=== PATIENT | male | born 2005 | race Caucasian/White ===

== ENCOUNTER 2024-08-05 13:47 | Inpatient (IN) | payer BC, MEDICAID ==
[~2024-08-05] VITALS: Ht 175.3 cm; Wt 78.6 kg
--- NOTE | 2024-08-05 14:34 | ED.PDOC ---
HPI Comments 19-year-old male with no reported PMHx brought in by EMS presents with a chief complaint of chest pain and palpitations x 1 hour. Patient states that his pain is localized to his left chest wall, describes as pressure, and rates his pain a 6/10. Patient mentions that he has an upcoming appointment at [facility] with a mechanical lead. Patient mentions that he is being worked up on suspicion of potential SVT. Patients EKG shows NSR with rate of 95. No other symptoms or modifying factors present at this time. Chief Complaint: Palpitations Time Seen by MD: 14:27 Primary Care Provider: UNKNOWN Reviewed Notes: Medications, Allergies Allergies: Coded Allergies: NO KNOWN ALLERGIES (Unverified , 08/05/24) Information Source: Patient Mode of Arrival: Ambulatory Severity: Moderate Timing: Hours Duration: Since onset Prehospital treatment: None Location: Chest (L) Radiation: No Radiation Quality: Pressure Onset: At Rest Cardiac Risk Factors: None PE Risk Factors: None History of: Similar pain in past Associated Signs and Symptoms: Palpitations Past Medical History PAST MEDICAL HISTORY: Denies Surgical History: Denies all surgeries Family History Family History: Reviewed,noncontributory to illness Social History Smoker: Quit Less Than 1 Year Alcohol: Denies ETOH Use, Sober Lives In: Home Constitutional: denies: chills, diaphoresis, fatigue, fever, malaise, sweats, weakness, others EENTM: denies: blurred vision, double vision, ear bleeding, ear discharge, ear drainage, ear pain, ear ringing, eye pain, eye redness, hearing loss, mouth pain, mouth swelling, nasal discharge, nose bleeding, nose congestion, nose pain, photophobia, tearing, throat pain, throat swelling, voice changes, others Respiratory: denies: cough, hemoptysis, orthopnea, SOB at rest, shortness of breath, SOB with excertion, stridor, wheezing, others Cardiovascular: reports: chest pain, palpitations; denies: dizzy spells, diaphoresis, Dyspnea on exertion, edema, irregular heart beat, left arm pain, lightheadedness, PND, syncope, others Gastrointestinal: denies: abdomen distended, abdominal pain, blood streaked bowels, constipated, diarrhea, dysphagia, difficulty swallowing, hematemesis, melena, nausea, poor appetite, poor fluid intake, rectal bleeding, rectal pain, vomiting, others Genitourinary: denies: burning, dysuria, flank pain, frequency, hematuria, incontinence, penile discharge, penile sore, pain, testicle pain, testicle swelling, urgency, others Neurological: denies: dizziness, fainting, headache, left sided numbness, left sided weakness, numbness, paresthesia, pre-existing deficit, right sided numbn ess, right sided weakness, seizure, speech problems, tingling, tremors, weakness, others Musculoskeletal: denies: back pain, gout, joint pain, joint swelling, muscle pain, muscle stiffness, neck pain, others Integumetry: denies: bruises, change in color, change in hair/nails, dryness, laceration, lesions, lumps, rash, wounds, others Allergic/Immunocompromised: denies: Difficulty Healing, Frequent Infections, Hives, Itching, others Hematologic/Lymphatic: denies: anemia, blood clots, easy bleeding, easy bruising, swollen glands, others Endocrine: denies: excessive hunger, excessive sweating, excessive thirst, excessive urination, flushing, intolerance to cold, intolerance to heat, unexplained weight gain, unexplained weight loss, others Psychiatric: denies: anxiety, bipolar disorder, depression, hopeless, panic disorder, schizophrenia, sleepless, suicidal, others All Other Systems: Reviewed and Negative Physical Exam General Appearance: Moderate Distress, Normal HEENT: Normal ENT Inspection, Pharynx Normal, TMs Normal Neck: Full Range of Motion, Non-Tender, Normal, Normal Inspection Respiratory: Chest Non-Tender, Lungs Clear, No Accessory Muscle Use, No Respiratory Distress, Normal Breath Sounds Cardiovascular: No Edema, No JVD, No Murmur, No Gallop, Normal Peripheral Pulses, Tachycardia Breast Exam: Deferred Gastrointestinal: No Organomegaly, Non Tender, No Pulsatile Mass, Normal Bowel Sounds, Soft Genitalia: Deferred Pelvic: Deferred Rectal: Deferred Extremities: No calf tenderness, Normal capillary refill, Normal inspection, Normal range of motion, Non-tender, No pedal edema Musculoskeletal : Apperance: Normal Neurologic: Alert, medical resident II-XII nml as Tested, No Motor Deficits, Normal Affect, Normal Mood, No Sensory Deficits Cerebellar Function: Normal Reflexes: Normal Skin: Dry, Normal Color, Warm Peripheral Pulses: 3+ Radial (R), 3+ Radial (L) Lymphatic: No Adenopathy EKG EKG : Pulse Rate (adult): 95 Kiron: RAD Cardiac Rhythm: NSR Block: None Hypertrophy: None ST: Normal Was a procedure done? Was a procedure done?: No CP Differential Dx Differential Diagnosis: A-fib, A-Flutter, Angina, Anxiety / Panic Attack, Atrial Dysrhythmia, Electrolyte Disorder X-Ray, Labs, Meds, VS Vital Signs Date Time Temp Pulse Resp B/P (MAP) Pulse Ox O2 Delivery O2 Flow Rate FiO2 08/05/24 14:34 95 08/05/24 14:05 97.7 85 16 138/84 (102) 98 08/05/24 13:53 95 Lab Test 08/05/24 14:47 Range/Units White Blood Count Pending Red Blood Count Pending Hemoglobin Pending Hematocrit Pending Mean Corpuscular Volume Pending Mean Corpuscular Hemoglobin Pending Mean Corpuscular Hemoglobin Concent Pending Red Cell Distribution Width Pending Platelet Count Pending Mean Platelet Volume Pending Neutrophils (%) (Auto) Pending Lymphocytes (%) (Auto) Pending Monocytes (%) (Auto) Pending Basophils (%) (Auto) Pending Neutrophils # (Auto) Pending Lymphocytes # (Auto) Pending Monocytes # (Auto) Pending Sodium Level Pending Potassium Level Pending Chloride Level Pending Carbon Dioxide Level Pending Anion Gap Pending Blood Urea Nitrogen Pending Creatinine Pending Glomerular Filtration Rate Calc Pending BUN/Creatinine Ratio Pending Serum Glucose Pending Calcium Level Pending Troponin I High Sensitivity Pending Patient alert. Complaining of palpitations. Increased heart rate. Vitals stable. EKG does show tachycardia. Continues to have palpitations. States that he has a history of SVT. Was given aspirin. Possibly will need echocardiogram. Cardiology consultation. Check for thyroid function test. Explained to the patient. Continue cardiac monitoring. Time of 1ST Reevaluation: 14:57 Reevaluation 1ST: Unchanged Patient Education/Counseling: Diagnosis, Treatment, Prognosis Family Education/Counseling: Diagnosis, Treatment, Prognosis Departure 1 Departure Time of Disposition: 15:36 Impression: Primary Impression: Palpitations Disposition: ADMITTED INPATIENT Admit to: Med Surg Condition: Guarded Critical Care Note Critical Care Time?: No Stability Stability form required: No Heart Score Heart Score: Heart Score Response (Comments) Value History Slightly Suspicious 0 EKG Normal 0 Age <45 0 Risk Factors No known risk factors 0 Troponin Normal limit 0 Total 0 I personally scribed for SILVIA RHODES MD ([email or web address]) on 08/05/24 at 14:34. Electronically submitted by Noe Lo ([email or web address]). SILVIA RHODES MD Aug 05, 2024 14:34
--- NOTE | 2024-08-05 14:45 | DVH ---
CHEST RADIOGRAPH Indication: sob Technique: Single frontal view of the chest was obtained COMPARISON: None FINDINGS: Lines and Tubes: None Lungs: Clear Pleura: No effusion. No pneumothorax. Cardiomediastinal contours: Unremarkable Bones: Unremarkable IMPRESSION: No acute disease.
[2024-08-05] MEDS: ASPirin 325 MG TAB PO ONE (14:46)
[2024-08-05 15:30] LABS: Basophils # (auto) 0.1 10 ^3/uL (0-0.2); Eosinophils # (auto) 0.1 10 ^3/uL (0-0.8); Eosinophils % (auto) 1.6 % (0.0-7.0); Hematocrit 45.9 % (41.0-53.0); Lymphocytes # (auto) 1.7 10 ^3/uL (0.4-5.4); Lymphocytes % (auto) 24.1 % (10.0-50.0); Mean Corpuscular Hemoglobin 30.4 pg (28.0-32.0); Mean Corpuscular Hgb Conc. 34.9 g/dL (32.0-36.0); Monocytes # (auto) 0.5 10 ^3/uL (0-1.3); Monocytes % (auto) 6.5 % (0.0-12.0); Neutrophils # (auto) 4.7 10 ^3/uL (1.6-8.6); Neutrophils % (auto) 66.8 % (37.0-80.0); Nucleated Red Blood Cells % 0.1 %; Platelet Count (auto) 232 10^3/uL (140-450); Red Blood Cells 5.28 10^6/uL (4.5-5.90)
[2024-08-05 15:43] LABS: Chloride 105 mmol/L (98-107); Sodium 140 mmol/L (136-145)
[2024-08-05 15:44] LABS: Anion Gap 9 (5-15); Calcium 9.7 mg/dL (8.7-10.4); Carbon Dioxide 26 mmol/L (20-31)
[2024-08-05 15:49] LABS: BUN/Creatinine Ratio 13.1 (10.0-20.0); Blood Urea Nitrogen 13 mg/dL (9-23); Glucose 85 mg/dL (74-106)
--- NOTE | 2024-08-05 17:10 | ECG ---
[facility] Test Date: 2024-08-05 Test Time: 13:53:15 Pat Name: JULIÁN TOBAR Department: ER Room: Gender: M Supervisor Public Health Nursing: MADELEINE : 2005 Requested By: PILLO LOCKHART Order Number: [id number] Reading MD: Measurements Intervals [employer] Rate: 95 P: 64 NH: 151 QRS: 96 QRSD: 92 T: 44 QT: 331 QTc: 416 Interpretive Statements Sinus rhythm Borderline right axis deviation Please click the below link to view image of tracing.
[2024-08-05] MEDS ORDERED: MORPHINE SULFATE 4 MG/ML SYR/VIAL IV PRN (17:15)
[2024-08-05] MEDS ORDERED: ONDANSETRON HCL 4 MG/2 ML VIAL IV PRN (17:15)
[2024-08-05] MEDS ORDERED: MORPHINE SULFATE INJ 2 MG/ml SYRG IV PRN (17:15)
[2024-08-05] MEDS ORDERED: NITROGLYCERIN 0.4 MG SL TAB SL PRN ×2 (17:15)
[2024-08-05] MEDS ORDERED: ACETAMINOPHEN 325 MG TAB PO PRN (17:15)
--- NOTE | 2024-08-05 17:29 | DVHHP2 ---
History of Present Illness Reason for Visit: Chest pain and palpitations History of Present Illness Tim Hester is a 19-year-old male with past medical history of IBS who presents to the ED for chest pain and palpitations x3 months. Patient reports that the pain was 8/10 felt like someone was sitting on his chest and inter mittent. Patient reports that he was vaping last month but quit and converted to cigarettes and now completely quit. 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 Patient denies any recent trauma or injury, recent illnesses, recent sick contacts, ingestion of spoiled food, abdominal pain, nausea, vomiting, diarrhea, fever, chills, lightheadedness, weakness, and dizziness. Mom is at the chair side and states that they have been going to numerous facilities and seeing numerous specialists that include Cardiology and their primary with no resolution. Patient's mom also states that there is an upcoming appointment next week on the with a licensed mass real estate appraiser at [place]. She also stated that the doctor at [facility] in ED informed her that on the EKG he had SVT and if it happens again to go directly to ER. Past Medical History IBS Past Surgical History: None Family History: Other (Grandfather with heart disease, dad with valve dysfunction and grandma with atherosclerosis?) Smoke: <1 pack per day ALCOHOL: none Drugs: None Lives: with Family Domestic Violence: Neg Review of Systems Constitutional: No: Fever, Chills, Sweats, Weakness, Malaise, Other Eyes: No: Pain, Vision change, Conjunctivae inflammation, Eyelid inflammation, Other, Redness ENT: No: Ear pain, Ear discharge, Nose pain, Nose discharge, Nose congestion, Mouth pain, Mouth swelling, Throat pain, Throat swelling, Other Respiratory: No: Cough, Dry, Shortness of breath, SOB with excertion, Wheezing, Hemoptysis, Pleuritic Pain, Sputum, Wheezing, Other Cardiovascular: Chest Pain, Palpitations; No: Orthopnea, Paroxysmal Noc. Dyspnea, Edema, Lt Headedness, Other Gastrointestinal: No: Nausea, Vomiting, Abdominal Pain, Diarrhea, Constipation, Melena, Hematochezia, Other Genitourinary: No Dysuria, No Frequency, No Incontinence, No Hematuria, No Retention, No Other Musculoskeletal: No: other, neck pain, shoulder pain, arm pain, back pain, hand pain, leg pain, foot pain Skin: No: Rash, Lesions, Jaundice, Bruising, Other Neurological: No: Weakness, Numbness, Incoordination, Change in speech, Confusion, Seizures, Other Allergies: Coded Allergies: NO KNOWN ALLERGIES (Unverified , 08/05/24) Exam Vital Signs Vital Signs Date Time Temp Pulse Resp B/P (MAP) Pulse Ox O2 Delivery O2 Flow Rate FiO2 08/05/24 14:34 95 08/05/24 14:05 97.7 16 138/84 (102) 98 General Appearance: Alert, Oriented X3, Cooperative, No acute distress HEENT: Atraumatic, PERRLA, EOMI, Mucous membr. moist/pink Respiratory: Normal air movement Cardiovascular: Regular rate, Normal S1, Normal S2, No murmurs Abdominal: Normal bowel sounds, Soft, No tenderness, No hepatospenomegaly, No masses Extremities: No clubbing, No cyanosis, No edema, Normal pulses, No tenderness/swelling Skin: No rashes, No breakdown, No significant lesion Neuro: Normal gait, Normal speech, Strength at 5/5 X4 ext, Normal tone, Sensation intact Psych/Mental Status: Mental status NL, Mood NL Labs/Xrays Labs Test 08/05/24 14:47 Range/Units White Blood Count 7.0 4.4-10.8 10^3/uL Red Blood Count 5.28 4.5-5.90 10^6/uL Hemoglobin 16.0 13.5-17.5 g/dL Hematocrit 45.9 41.0-53.0 % Mean Corpuscular Volume 87.0 80.0-100.0 fL Mean Corpuscular Hemoglobin 30.4 28.0-32.0 pg Mean Corpuscular Hemoglobin Concent 34.9 32.0-36.0 g/dL Red Cell Distribution Width 13.0 11.8-14.3 % Platelet Count 232 140-450 10^3/uL Mean Platelet Volume 9.6 6.9-10.8 fL Neutrophils (%) (Auto) 66.8 37.0-80.0 % Lymphocytes (%) (Auto) 24.1 10.0-50.0 % Monocytes (%) (Auto) 6.5 0.0-12.0 % Eosinophils (%) (Auto) 1.6 0.0-7.0 % Basophils (%) (Auto) 1.0 0.0-2.0 % Neutrophils # (Auto) 4.7 1.6-8.6 10 ^3/uL Lymphocytes # (Auto) 1.7 0.4-5.4 10 ^3/uL Monocytes # (Auto) 0.5 0-1.3 10 ^3/uL Eosinophils # (Auto) 0.1 0-0.8 10 ^3/uL Basophils # (Auto) 0.1 0-0.2 10 ^3/uL Nucleated Red Blood Cells 0.1 % Sodium Level 140 136-145 mmol/L Potassium Level 4.0 3.5-5.1 mmol/L Chloride Level 105 98-107 mmol/L Carbon Dioxide Level 26 20-31 mmol/L Anion Gap 9 5-15 Blood Urea Nitrogen 13 9-23 mg/dL Creatinine 0.99 0.700-1.30 mg/dL Glomerular Filtration Rate Calc 112 >90 mL/min BUN/Creatinine Ratio 13.1 10.0-20.0 Serum Glucose 85 74-106 mg/dL Calcium Level 9.7 8.7-10.4 mg/dL Troponin I High Sensitivity < 3 L </=54 ng/L CHEST RADIOGRAPH Indication: sob Technique: Single frontal view of the chest was obtained COMPARISON: None FINDINGS: Lines and Tubes: None Lungs: Clear Pleura: No effusion. No pneumothorax. Cardiomediastinal contours: Unremarkable Bones: Unremarkable IMPRESSION: No acute disease. Assessment/Plan Assessment/Plan Assessment/Plan: Palpitations Chest pain rule out ACS Labs TSH UDS Troponin negative Chest x-ray noted Echo ordered A1c Lipid panel UA EKG ordered CT chest ACS protocol Cardiac consult A.m. labs History of IBS Follow up outpatient with PCP Tobacco use Counseled patient on cessation of tobacco use/vape use FEN/PPX Diet Hep-Lock DVT ppx - not indicated patient ambulating PUD prophylaxis -famotidine Discussed plan of care with patient and nurse Home medications reconciled Admit to tele Plan discussed with: Patient, Other (mom) My Orders Orders - PILLO LOCKHART PHOTOGRAPHIC RESTORER Procedure Category Date Status Time Echo 2d Mode Cardiac US 08/05/24 Logged DOP 16:42 Hemoglobin A1c LAB 08/05/24 In Process 16:42 Urinalysis LAB 08/05/24 Logged 16:42 Drug Screen LAB 08/05/24 Logged 16:42 Lipid Panel LAB 08/05/24 Logged 16:[address] 08/05/24 Logged 16:44 * Cardiology Consult CONS 08/05/24 Transmitted 17:06 Admit ADMIT 08/05/24 Transmitted 17:06 Code Status CODE 08/05/24 Transmitted 17:06 Vital Signs LUDA 08/05/24 Transmitted 17:06 Neonatal Pediatric Nurse LUDA 08/05/24 Transmitted 17:06 Cardiac DIET 08/05/24 Transmitted Diet-2gna,Lofat,Lochol Dinner Aspirin Tablet PHA 08/06/24 Transmitted 10:00 Lipitor 40mg Hs PHA 08/05/24 Transmitted Hi-Intensity 22:00 Morphine Sulfate PHA 08/05/24 Transmitted Injection 17:15 Acetaminophen Tablet PHA 08/05/24 Transmitted (Tylenol Tablet) 17:15 Complete Blood Count LAB 08/06/24 Verified 04:00 Basic Metabolic Panel LAB 08/06/24 Verified 04:00 Magnesium LAB 08/06/24 Verified 04:00 Nitroglycerin PHA 08/05/24 Transmitted Sublingual (Ntrostat 17:15 Ondansetron Hcl PHA 08/05/24 Transmitted (Zofran) 17:15 Electrocardigram EKG 08/05/24 Transmitted 17:06 Troponin-I Hs LAB 08/05/24 Transmitted 17:06 Cardiac LUDA 08/05/24 Transmitted Rehabilitation - Outpa Nitroglycerin PHA 08/05/24 Transmitted Sublingual (Ntrostat 17:15 Morphine Sulfate PHA 08/05/24 Transmitted Injection 17:15 Stat Ekg For Chest [facility] 08/05/24 Transmitted Pain 17:06 Notify Md Of Changes [facility] 08/05/24 Transmitted From Base 17:06 Rrts For LUDA 08/05/24 Transmitted 24 Hours 17:06 Emergency Dysrhythmia LUDA 08/05/24 Transmitted Protocol 17:06 Rhythm Strips Once [facility] 08/05/24 Transmitted Every Shift 17:06 Oxygen By Nasal RT 08/05/24 Transmitted Cannula 17:06 Electrocardigram EKG 08/05/24 Transmitted 18:06 Electrocardigram EKG 08/05/24 Transmitted 20:06 Date of Service: Aug 05, 2024 Billing Provider: PILLO LOCKHART Common Visit Codes: [id number] INP/OBS CARE (HIGH) PILLO LOCKHART Aug 05, 2024 17:29
--- NOTE | 2024-08-05 17:32 | DVH ---
Procedure: CT CHEST WITHOUT CONTRAST Reason for study/Clinical History: cp Comparison Study: None available at time of dictation. Exam Date: 08/05/2024 05:07 PM TECHNIQUE: Multidetector CT of the chest was performed from the lung apices to the upper abdomen with out the use of intravenous contract. Axial, coronal and sagittal multiplanar reformats were performed . Radiation Dose Information: CT Dose: CTDI volume is 5.95 mGy. Dose-length product is 244.09 mGy*cm The dose indicators for CT are the volume Computed Tomography (CT) Dose Index (CTDIvol) and the Dose Length Product (DLP), and are measured in units of mGy and mGy-cm, respectively. These indicators are not patient dose, but values generated from the CT scanner acquisition factors. The report includes radiation exposure data for exposures received during this examination. FINDINGS: Lower neck: Normal thyroid. Lungs: No focal consolidation, pleural effusion or pneumothorax. Heart/Vascular Structures: Normal heart size. No pericardial effusion. Lymph Nodes: No adenopathy Pleura: No pleural effusion or significant pneumothorax. Musculoskeletal: No acute osseous abnormality. Soft tissues: Normal. Upper abdomen: Limited portions of the upper abdomen are unremarkable. IMPRESSION: 1. No acute intrathoracic abnormality. Radiation optimization: All CT scans at this facility use at least one of these dose optimization veronica hniques: automated exposure control mA and/or kV adjustment per patient size (includes targeted exam s where dose is matched to clinical indication) or iterative reconstruction.
[2024-08-05 18:45] LABS: LDL Cholesterol 67 mg/dL (< 100); Triglycerides 46 mg/dL (< 150)
[2024-08-05 18:47] LABS: Cholesterol 116 mg/dL (< 200); HDL Cholesterol 41 mg/dL (40-59)
[2024-08-05 21:17] LABS: Urine Bacteria FEW /hpf (None Seen); Urine Blood Negative /uL (Negative); Urine Clarity Clear (Clear); Urine Color Yellow (Yellow); Urine Mucus FEW (None Seen); Urine Protein, UAD TRACE (Negative); Urine Specific Gravity 1.027 (1.001-1.035); Urine Squamous Epithelial Cell None Seen /hpf (<5); Urine Urobilinogen Normal (Negative); Urine WBC 3 /HPF (0-3)
[2024-08-05 21:48] LABS: Amphetamine Screen, Urine Neg (NEGATIVE); Barbiturate Scree,Urine Neg (NEGATIVE); Benzodiazephine Screen, Urine Neg (NEGATIVE); Opiate Scree,Urine Neg (NEGATIVE); Phencyclidine Screen, Urine Neg (NEGATIVE)
[2024-08-05 21:49] LABS: Cannabinoid Screen, Urine Neg (NEGATIVE); Cocaine Screen, Urine Neg (NEGATIVE)
[2024-08-06] MEDS: ATORVASTATIN 20 MG TAB PO SCH (00:05)
[2024-08-06 01:15] VITALS: RESP 15; O2SAT 97
[2024-08-06 06:14] LABS: Basophils # (auto) 0.1 10 ^3/uL (0-0.2); Eosinophils # (auto) 0.2 10 ^3/uL (0-0.8); Eosinophils % (auto) 2.9 % (0.0-7.0); Hematocrit 46.8 % (41.0-53.0); Hemoglobin 15.7 g/dL (13.5-17.5); Lymphocytes # (auto) 1.7 10 ^3/uL (0.4-5.4); Lymphocytes % (auto) 27.4 % (10.0-50.0); Mean Corpuscular Hemoglobin 29.4 pg (28.0-32.0); Mean Corpuscular Hgb Conc. 33.6 g/dL (32.0-36.0); Mean Corpuscular Volume 87.6 fL (80.0-100.0); Monocytes # (auto) 0.5 10 ^3/uL (0-1.3); Monocytes % (auto) 7.4 % (0.0-12.0); Neutrophils # (auto) 3.8 10 ^3/uL (1.6-8.6); Neutrophils % (auto) 61.3 % (37.0-80.0); Nucleated Red Blood Cells % 0.2 %; Platelet Count (auto) 234 10^3/uL (140-450); Red Blood Cells 5.34 10^6/uL (4.5-5.90); White Blood Cell 6.2 10^3/uL (4.4-10.8)
[2024-08-06 06:23] LABS: Anion Gap 8 (5-15); Carbon Dioxide 26 mmol/L (20-31); Chloride 106 mmol/L (98-107); Potassium 4.5 mmol/L (3.5-5.1); Sodium 140 mmol/L (136-145)
[2024-08-06 06:25] LABS: Calcium 10.1 mg/dL (8.7-10.4)
[2024-08-06 06:29] LABS: Glucose 94 mg/dL (74-106)
[2024-08-06 06:30] LABS: BUN/Creatinine Ratio 9.7 (10.0-20.0); Blood Urea Nitrogen 10 mg/dL (9-23); Magnesium 2.1 mg/dL (1.6-2.6)
[2024-08-06] MEDS: FAMOTIDINE (10MG/ML) 2ML VL IV SCH (10:00)
[2024-08-06] MEDS: ASPirin 81 mg TAB PO SCH (10:58)
--- NOTE | 2024-08-06 11:14 | DVHINCON2 ---
ROMEROLIAMO Love AGACNP 08/06/24 1114: Date Seen: Aug 06, 2024 Referring Physician Marlena Reason for Consultation Palpitations, Chest Pain History of Present Illness 19-year-old male with no prior medical history presents to the hospital with chest pressure and palpitations. Patient states that he has been having recent episodes for over a year and has been following up at [place]. Denies any anxiety. Patient is following up with PCP outpatient recently got a referral for cardiology consult done at [place] though has not had appointment yet. Denies any high caffeinated beverages pre workout or any supplements. Denies any alcohol, tobacco, or illicit drug use. Patient states that his blood pressure is significantly elevated at time of occurrence, noted his heart rate to be in the 130s up to 150s with blood pressure being around 150 systolic as well. Upon evaluation in the ER troponins negative, TSH normal, and CT chest unremarkable. EKG reviewed and shows sinus rhythm at 95 beats per minute, no acute ST and T-wave abnormality. Past Medical History Palpitations Recurrent CP Past Surgical History Denies previous cardiac surgeries Family History Denies pertinent family cardiac history Social History Denies alcohol, tobacco or illicit drug use Allergies: Coded Allergies: NO KNOWN ALLERGIES (Unverified , 08/05/24) Current Medications Current Medications Medications (Trade) Dose Ordered Sig/Delisa Route PRN Reason Start Time Stop Time Status Last Admin Aspirin 81 mg DAILY PO 08/06/24 10:00 Atorvastatin Calcium (Lipitor) 40 mg HS PO 08/05/24 22:00 Morphine Sulfate 2 mg Q30MP PRN IV FOR CHEST PAIN 08/05/24 17:15 08/05/24 17:11 DC Acetaminophen (Tylenol Tablet) 650 mg Q6HP PRN PO MILD PAIN (1-3 PAIN SCALE) 08/05/24 17:15 Nitroglycerin (Ntrostat Sublingual) 0.4 mg Q5MINP PRN SL FOR CHEST PAIN 08/05/24 17:15 08/05/24 17:12 DC Ondansetron HCl (Zofran) 4 mg Q4HP PRN IV NAUSEA / VOMITING 08/05/24 17:15 Nitroglycerin (Ntrostat Sublingual) 0.4 mg Q5MINP PRN SL FOR CHEST PAIN 08/05/24 17:15 Morphine Sulfate 2 mg Q30M PRN IV FOR CHEST PAIN 08/05/24 17:15 Famotidine (Pepcid Injection) 20 mg DAILY IV 08/06/24 10:00 Review of Systems Constitutional: No: Fever, Chills, Sweats, Weakness, Malaise, Other Eyes: No: Pain, Vision change, Conjunctivae inflammation, Eyelid inflammation, Other, Redness ENT: No: Ear pain, Ear discharge, Nose pain, Nose discharge, Nose congestion, Mouth pain, Mouth swelling, Throat pain, Throat swelling, Other Respiratory: No: Cough, Dry, Shortness of breath, SOB with exertion, Wheezing, Hemoptysis, Pleuritic Pain, Sputum, Wheezing, Other Cardiovascular: ; No: , Orthopnea, Paroxysmal Noc. Dyspnea, Edema, Lt Headedness, Other positive: Chest Pain Palpitations Gastrointestinal: No: Nausea, Vomiting, Abdominal Pain, Diarrhea, Constipation, Melena, Hematochezia, Other Genitourinary: No Dysuria, No Frequency, No Incontinence, No Hematuria, No Retention, No Other Musculoskeletal: neck pain; No: other, shoulder pain, arm pain, back pain, hand pain, leg pain, foot pain Skin: No: Rash, Lesions, Jaundice, Bruising, Other Neurological: Other (Dizziness, headache.); No: Weakness, Numbness, Incoordination, Change in speech, Confusion, Seizures Vital Signs Vital Signs Date Time Temp Pulse Resp B/P (MAP) Pulse Ox O2 Delivery O2 Flow Rate FiO2 08/06/24 09:30 97.8 83 20 122/64 (83) 97 97.8 08/06/24 01:15 Room Air* 0 21 Physical Exam General appearance: Patient is well-developed, well-nourished, in no acute distress. HEENT: Exam shows: Normocephalic, atraumatic, PERRLA, EOMI Neck: Supple, no bruits Chest: Equal chest excursion bilaterally. Breath sounds normal-no rales or wh eezes. Heart: Rhythm: Regular rate; tachycardia no murmur or gallop Abdomen: Exam shows: Soft, nontender, nondistended Musculoskeletal: No clubbing, no cyanosis, no lower extremity edema Dermatology: Skin warm, moist. Neurological: Exam shows: Alert and oriented x4, normal speech Available prior records, labs, EKG, rhythm strips reviewed and interpreted Labs/Diagnostic Data Labs Test 08/06/24 08:16 08/06/24 05:09 08/05/24 20:46 08/05/24 18:10 Range/Units White Blood Count 6.2 4.4-10.8 10^3/uL Red Blood Count 5.34 4.5-5.90 10^6/uL Hemoglobin 15.7 13.5-17.5 g/dL Hematocrit 46.8 41.0-53.0 % Mean Corpuscular Volume 87.6 80.0-100.0 fL Mean Corpuscular Hemoglobin 29.4 28.0-32.0 pg Mean Corpuscular Hemoglobin Concent 33.6 32.0-36.0 g/dL Red Cell Distribution Width 13.0 11.8-14.3 % Platelet Count 234 140-450 10^3/uL Mean Platelet Volume 9.5 6.9-10.8 fL Neutrophils (%) (Auto) 61.3 37.0-80.0 % Lymphocytes (%) (Auto) 27.4 10.0-50.0 % Monocytes (%) (Auto) 7.4 0.0-12.0 % Eosinophils (%) (Auto) 2.9 0.0-7.0 % Basophils (%) (Auto) 1.0 0.0-2.0 % Neutrophils # (Auto) 3.8 1.6-8.6 10 ^3/uL Lymphocytes # (Auto) 1.7 0.4-5.4 10 ^3/uL Monocytes # (Auto) 0.5 0-1.3 10 ^3/uL Eosinophils # (Auto) 0.2 0-0.8 10 ^3/uL Basophils # (Auto) 0.1 0-0.2 10 ^3/uL Nucleated Red Blood Cells 0.2 % Sodium Level 140 136-145 mmol/L Potassium Level 4.5 3.5-5.1 mmol/L Chloride Level 106 98-107 mmol/L Carbon Dioxide Level 26 20-31 mmol/L Anion Gap 8 5-15 Blood Urea Nitrogen 10 9-23 mg/dL Creatinine 1.03 0.700-1.30 mg/dL Glomerular Filtration Rate Calc 107 >90 mL/min BUN/Creatinine Ratio 9.7 L 10.0-20.0 Serum Glucose 94 74-106 mg/dL Calcium Level 10.1 8.7-10.4 mg/dL Magnesium Level 2.1 1.6-2.6 mg/dL Urine Color Yellow Yellow Urine Clarity Clear Clear Urine pH 6.0 5.0-9.0 Urine Specific [place] 1.027 1.001-1.035 Urine Protein Trace H Negative Urine Ketones 1+ H Negative Urine Blood Negative Negative /uL Urine Nitrite Negative Negative Urine Bilirubin Negative Negative Urine Urobilinogen Normal Negative mg/dL Urine Leukocyte Esterase Negative Negative /uL Urine RBC 2 0 - 3 /hpf Urine Microscopic WBC 3 0-3 /HPF Urine Squamous Epithelial Cells None seen <5 /hpf Urine Bacteria Few H None Seen /hpf Urine Mucus Few None Seen Urine Glucose Normal Normal mg/dL Urine Opiates Screen Neg NEGATIVE Urine Fentanyl Screen Neg NEGATIVE Urine Barbiturates Screen Neg NEGATIVE Urine Phencyclidine Screen Neg NEGATIVE Urine Amphetamines Screen Neg NEGATIVE Urine Benzodiazepines Screen Neg NEGATIVE Urine Cocaine Screen Neg NEGATIVE Urine Cannabinoids Screen Neg NEGATIVE Triglycerides Level 46 < 150 mg/dL Cholesterol Level 116 < 200 mg/dL LDL Cholesterol 67 < 100 mg/dL HDL Cholesterol 41 40-59 mg/dL Thyroid Stimulating Hormone (TSH) 1.67 0.55-4.78 uIU/mL Test 08/05/24 14:47 Range/Units Hemoglobin A1c 5.0 <5.7 % A1C Assessment Palpitations Chest Pain Plan/Recommendation * Telemetry monitoring, follow up echo. * TSH normal. * Troponins negative, EKG negative for acute/significant ST and T-wave abnormality. ACS ruled out. * Monitor and replace electrolytes, Keep K>4 and MG> [address] Shahid. Follow-up echo. Patient to follow up with [facility] for continued event monitoring for arrhythmias. Critical care, time spent: 38 minutes This medical document was created using an electronic medical record system with voice recognition software and computerized dictation system. Although this document has been carefully reviewed, there might still be some phonetic and typographical errors. Occasional wrong-word or ``sound-alike substitutions may have occurred due to the inherent limitations of voice recognition software. These areas are purely typographical due to imperfections of the software programs and do not reflect any compromise in the patient's medical care. Please read the chart carefully and recognize, using context, where these s ubstitutions have occurred. Thank you for allowing me to participate in the management of this patient. The treatment plan was discussed with and agreed upon by patient/family including requesting consultants and ordering of imaging/procedures. Plan discussed with: Patient, Other (mother) NYHA Physical activity limitations: NA Date of Service: Aug 06, 2024 Billing Provider: DANISH ROMERO Cardiology Common Codes: [id number] INP/OBS CARE (High), [id number] CARE 30-74 MIN IRINA SHAHID MD 08/06/24 1355: Allergies: Coded Allergies: NO KNOWN ALLERGIES (Unverified , 08/05/24) Plan/Recommendation PATIETN NOT SEEN, HES NOT IN AN ER BED, IN WAITING AREA GETTING SVT WORKUP OUTPT CONT TELE PRN BB WILL SIGN OFF Plan discussed with: Patient DANISH ROMERO Aug 06, 2024 11:14 IRINA SHAHID MD Aug 06, 2024 13:55
[2024-08-06 13:00] VITALS: BP 139/76; PULSE 76; RESP 16; TEMP 98.2; O2SAT 98
[2024-08-06 13:41] VITALS: BP 139/76; PULSE 76; RESP 16; TEMP 98.2; O2SAT 98
--- NOTE | 2024-08-06 14:48 | DVHPN2 ---
Eyes: No Pain, No Vision change, No Conjunctivae inflammation, No Eyelid inflammation, No Other, No Redness ENT: No Ear pain, No Ear discharge, No Nose pain, No Nose discharge, No Nose congestion, No Mouth pain, No Mouth swelling, No Throat pain, No Throat swelling, No Other Cardiovascular: Chest Pain, Palpitations; No Orthopnea, No Paroxysmal Noc. Dyspnea, No Edema, No Lt Headedness, No Other Respiratory: No Cough, No Dry, No Shortness of breath, No SOB with excertion, No Wheezing, No Hemoptysis, No Pleuritic Pain, No Sputum, No Other Gastrointestinal: No Nausea, No Vomiting, No Abdominal Pain, No Diarrhea, No Constipation, No Melena, No Hematochezia, No Other Genitourinary: No Dysuria, No Frequency, No Incontinence, No Hematuria, No Retention, No Other Musculoskeletal: No other, No neck pain, No shoulder pain, No arm pain, No back pain, No hand pain, No leg pain, No foot pain Skin: No Rash, No Lesions, No Jaundice, No Bruising, No Other Objective Vitals Vital Signs Date Time Temp Pulse Resp B/P (MAP) Pulse Ox O2 Delivery O2 Flow Rate FiO2 08/06/24 13:41 98.2 76 16 139/76 (97) 98 98.2 08/06/24 01:15 Room Air* 0 21 Medications Current Medications Medications Dose Ordered Sig/Delisa Route Start Time Stop Time Status Last Admin Dose Admin Aspirin 81 mg DAILY PO 08/06/24 10:00 08/06/24 10:58 81 MG Atorvastatin Calcium 40 mg HS PO 08/05/24 22:00 Acetaminophen 650 mg Q6HP PRN PO 08/05/24 17:15 Ondansetron HCl 4 mg Q4HP PRN IV 08/05/24 17:15 Nitroglycerin 0.4 mg Q5MINP PRN SL 08/05/24 17:15 Morphine Sulfate 2 mg Q30M PRN IV 08/05/24 17:15 Famotidine 20 mg DAILY IV 08/06/24 10:00 08/06/24 10:00 20 MG Laboratory Results Laboratory Tests 08/06/24 05:09 Chemistry Test 08/06/24 05:09 Calcium Level 10.1 mg/dL (8.7-10.4) Magnesium Level 2.1 mg/dL (1.6-2.6) Lipid panel Test 08/05/24 18:10 Cholesterol Level 116 mg/dL (< 200) HDL Cholesterol 41 mg/dL (40-59) Triglycerides Level 46 mg/dL (< 150) HgA1c, TSH Test 08/05/24 18:10 Thyroid Stimulating Hormone (TSH) 1.67 uIU/mL (0.55-4.78) Urinalysis Test 08/05/24 20:46 Urine Color Yellow (Yellow) Urine Clarity Clear (Clear) Urine pH 6.0 (5.0-9.0) Urine Specific [place] 1.027 (1.001-1.035) Urine Protein Trace (Negative) H Urine Ketones 1+ (Negative) H Urine Blood Negative /uL (Negative) Urine Nitrite Negative (Negative) Urine Bilirubin Negative (Negative) Urine Urobilinogen Normal mg/dL (Negative) Urine Leukocyte Esterase Negative /uL (Negative) Urine RBC 2 /hpf (0 - 3) Urine Microscopic WBC 3 /HPF (0-3) Urine Squamous Epithelial Cells None seen /hpf (<5) Urine Bacteria Few /hpf (None Seen) H Urine Mucus Few (None Seen) Urine Glucose Normal mg/dL (Normal) CAMI GALLAGHER MD Aug 06, 2024 14:48
[2024-08-06 17:00] VITALS: BP 128/72; PULSE 64; RESP 16; TEMP 98.2; O2SAT 98
--- NOTE | 2024-08-08 08:11 | DVHSR ---
APPROVED REPORT EXAM: Two-dimensional and M-mode echocardiogram with Doppler and color Doppler. Blood Pressure: 125/69 mmHg INDICATION Chest Pain RISK FACTORS Height: 5' 9", Weight: 173 DIMENSIONS LVDd4.1 (3.8-5.7cm)LA (2D)3.6 (1.9-4.0cm)Aortic Root2.7 (2.0-3.7cm) LVDs2.7 (2.5-4.0cm)LA (MM) (1.9-4.0cm)Aortic Cusp Exc1.9 (1.5-2.0cm) EF (%) 63.0 (55-70%)Rt. Atrium3.1 (1.9-4.0cm)Asc. Aorta cm IVSd1.0 (0.7-1.1cm)RV (D) (1.8-2.4cm) PWd1.0 (0.7-1.1cm) Mitral Valve MitralMitral Stenosis E wave1.10m/sMV Mean GR.mmHg A wave0.80m/sMV Peak GR.mmHg E/A ratio1.42D MVAcm2 Aortic Valve Aortic ValveAortic Stenosis V11.00m/[place] Mean GR.3mmHg V21.10m/[place] Peak GR.6mmHg LVOT Diameter2.0 (1.8-2.4cm)Doppler AVA2.85cm2 Pulmonic Valve V20.70m/s Conclusion lvef 70% by visual estimate normal rv function normal atria normal pericardium no severe valve abnormalities noted
--- NOTE | 2024-08-08 14:05 | DVHDS2 ---
Discharge Summary Date of Admission Aug 05, 2024 at 17:06 Date of Discharge: Aug 06, 2024 Admitting Diagnosis Palpitations Chest pain rule out ACS History of IBS Tobacco use Labs/Diagnostic Data: Laboratory Results Test 08/06/24 08:16 08/06/24 05:09 08/05/24 20:46 08/05/24 18:10 Troponin I High Sensitivity < 3 ng/L (</=54) White Blood Count 6.2 10^3/uL (4.4-10.8) Red Blood Count 5.34 10^6/uL (4.5-5.90) Hemoglobin 15.7 g/dL (13.5-17.5) Hematocrit 46.8 % (41.0-53.0) Mean Corpuscular Volume 87.6 fL (80.0-100.0) Mean Corpuscular Hemoglobin 29.4 pg (28.0-32.0) Mean Corpuscular Hemoglobin Concent 33.6 g/dL (32.0-36.0) Red Cell Distribution Width 13.0 % (11.8-14.3) Platelet Count 234 10^3/uL (140-450) Mean Platelet Volume 9.5 fL (6.9-10.8) Neutrophils (%) (Auto) 61.3 % (37.0-80.0) Lymphocytes (%) (Auto) 27.4 % (10.0-50.0) Monocytes (%) (Auto) 7.4 % (0.0-12.0) Eosinophils (%) (Auto) 2.9 % (0.0-7.0) Basophils (%) (Auto) 1.0 % (0.0-2.0) Neutrophils # (Auto) 3.8 10 ^3/uL (1.6-8.6) Lymphocytes # (Auto) 1.7 10 ^3/uL (0.4-5.4) Monocytes # (Auto) 0.5 10 ^3/uL (0-1.3) Eosinophils # (Auto) 0.2 10 ^3/uL (0-0.8) Basophils # (Auto) 0.1 10 ^3/uL (0-0.2) Nucleated Red Blood Cells 0.2 % Sodium Level 140 mmol/L (136-145) Potassium Level 4.5 mmol/L (3.5-5.1) Chloride Level 106 mmol/L (98-107) Carbon Dioxide Level 26 mmol/L (20-31) Anion Gap 8 (5-15) Blood Urea Nitrogen 10 mg/dL (9-23) Creatinine 1.03 mg/dL (0.700-1.30) Glomerular Filtration Rate Calc 107 mL/min (>90) BUN/Creatinine Ratio 9.7 (10.0-20.0) Serum Glucose 94 mg/dL (74-106) Calcium Level 10.1 mg/dL (8.7-10.4) Magnesium Level 2.1 mg/dL (1.6-2.6) Urine Color Yellow (Yellow) Urine Clarity Clear (Clear) Urine pH 6.0 (5.0-9.0) Urine Specific [place] 1.027 (1.001-1.035) Urine Protein Trace (Negative) Urine Ketones 1+ (Negative) Urine Blood Negative /uL (Negative) Urine Nitrite Negative (Negative) Urine Bilirubin Negative (Negative) Urine Urobilinogen Normal mg/dL (Negative) Urine Leukocyte Esterase Negative /uL (Negative) Urine RBC 2 /hpf (0 - 3) Urine Microscopic WBC 3 /HPF (0-3) Urine Squamous Epithelial Cells None seen /hpf (<5) Urine Bacteria Few /hpf (None Seen) Urine Mucus Few (None Seen) Urine Glucose Normal mg/dL (Normal) Urine Opiates Screen Neg (NEGATIVE) Urine Fentanyl Screen Neg (NEGATIVE) Urine Barbiturates Screen Neg (NEGATIVE) Urine Phencyclidine Screen Neg (NEGATIVE) Urine Amphetamines Screen Neg (NEGATIVE) Urine Benzodiazepines Screen Neg (NEGATIVE) Urine Cocaine Screen Neg (NEGATIVE) Urine Cannabinoids Screen Neg (NEGATIVE) Triglycerides Level 46 mg/dL (< 150) Cholesterol Level 116 mg/dL (< 200) LDL Cholesterol 67 mg/dL (< 100) HDL Cholesterol 41 mg/dL (40-59) Thyroid Stimulating Hormone (TSH) 1.67 uIU/mL (0.55-4.78) Test 08/05/24 14:47 Hemoglobin A1c 5.0 % A1C (<5.7) Other Laboratory Tests 08/06/24 05:09 Brief Hx & Hospital Course: This is a 19 years old male with past medical history irritable bowel syndrome came into emergency department because of her palpitation for three months. The patient also complained of heavy chest pain. Per patient he feels like somebody sitting on his chest r intermittently. Pain is 8 out of 10. Chest pain did not radiate. The patient is supposed to see Cardiology [facility] at the end of this month for heart monitor. Per his mom who came with him, states that they have been going to numerous facilities and seeing numerous specialists that include Cardiology and their primary with no resolution. The patient apparently came to emergency department at [place]. Per patient ER doctor at [place] told him that EKG showed SVT in he should go to emergency department right away if this happened again. So today started having heart palpitation so he decided to check in [facility] for further evaluation. The patient was admitted. EEG was done. Cardiology see the patient. Recommend 2D echo but no further intervention. Recommended to follow up with his rn labor and delivery for Holter monitor as outpatient. Activity as tolerated. Her home diet. Follow up with primary care physician 1-2 weeks. Follow up with rn labor and delivery at [place] per schedule. Physical exam: HEENT: Normocephalic atraumatic pupils equal react to light and accommodation. Extraocular muscles intact, conjunctiva pink, oropharynx moist, no thrush, no exudate. Lymphatic: No lymphadenopathy Cardiovascular exam: S1, S2 was heard. No murmurs, rubs, gallops Lung: Clear on auscultation bilaterally, no wheeze, rale, rhonchi. GI: Abdominal soft, nondistended, nontenderness, positive bowel sounds. Extremity: No crepitus, cyanosis, edema. Pedal pulses present bilateral. Full range of motion. Skin: Normal turgor, no rash. Psych: Alert, oriented x3. Neurology: No focal deficits, cranial nerve II to XII grossly intact. This medical document was created using an electronic medical record system with [employer] direct computerized dictation system. Although this document has been carefully reviewed, there may still be some phonetic and typographical errors. These areas are purely typographical due to imperfections of the software programs, and do not reflect any compromise in the patient's medical care. Condition at Discharge: Stable Final Diagnosis/Problems List Palpitations Chest pain rule out ACS History of IBS Tobacco use Discharge Disposition: Home Discharge Instruct/Medications Diet: Cardiac 2g Na,low cholest Activity: No Restrictions, As Tolerated Follow Up/Referral: pcp 1-2 weeks Discharge Statement: "Patient was advised to return to the ER or call 911 if any headaches, dizziness, shortness of breath, chest pain, abdominal pain, bleeding, fevers, or worsening of medical condition. Patient was counseled about treatment plan, medications, possible side effects, patientverbalized understanding. All questions were answered to the best of my ability. This discharge took greater then 30 minutes in planning, reviewing documentation, counseling the patient, and discussing with other team members." ASSESSMENT ASSESSMENT Assessment chest pain Date of Service: Aug 06, 2024 Billing Provider: CAMI GALLAGHER MD Common Visit Codes: 52171-GQA/OBS DISCH DAY >30min CAMI GALLAGHER MD Aug 08, 2024 14:05
== END 2024-08-06 18:10 | disposition home or self-care (01) | DRG 311 ==
LOC: EDBD 13:47 → ER 13:47 → OVERFLOW 17:06
DX: I24.9 Acute ischemic heart disease, unspecified (principal); R00.2 Palpitations; Z87.891 Personal history of nicotine dependence; Z82.49 Family history of ischemic heart disease and other diseases of the circulatory system; Z79.899 Other long term (current) drug therapy
CPT/HCPCS: 36415; 71045; 71250; 80048; 80061; 80307; 81001; 83036; 83735; 84443; 84484; 85025; 93005; 93306; G0378; J3490